=== PATIENT | female | born 1990 | race Caucasian/White ===

== ENCOUNTER 2016-10-12 00:46 | Observation (INO) | payer MEDICAID ==
[~2016-10-12] VITALS: Ht 162.6 cm; Wt 68.0 kg
[2016-10-12] MEDS ORDERED: FOLI-43 PO (01:47)
[2016-10-12] MEDS ORDERED: OCD PO (01:47)
[2016-10-12] MEDS ORDERED: IRON-1 PO (01:47)
[2016-10-12] MEDS ORDERED: PREN-88 PO (01:47)
== END 2016-10-12 02:07 | disposition home or self-care (01) ==
LOC: L&D 00:46
PROVIDERS: ADMIT Obstetrics & Gynecology; ATTEND Obstetrics & Gynecology
DX: O42.92 Full-term premature rupture of membranes, unspecified as to length of time between rupture and onset of labor (principal); Z3A.40 40 weeks gestation of pregnancy
CPT/HCPCS: 99281; G0378

== ENCOUNTER 2016-10-12 09:02 | Inpatient (IN) | payer MEDICAID ==
[~2016-10-12] VITALS: Ht 162.6 cm; Wt 69.9 kg
[~2016-10-12 09:02] MED LIST: FOLI-43 PO; IRON-1 PO; OCD PO; PREN-88 PO
[2016-10-12] MEDS ORDERED: DEXT 5%/LR + PITOCIN 20UNITS/L 1,000 ML IV SCH ×2 (10:04→14:36)
[2016-10-12] MEDS ORDERED: METHYLERGONOVINE MALEATE 0.2 MG/ML IM PRN ×2 (10:15→14:45)
[2016-10-12] MEDS ORDERED: CARBOPROST TROMETHAMINE 250 MCG/ML AMPUL IM PRN (10:15)
[2016-10-12] MEDS ORDERED: BUTORPHANOL TARTRATE 2 MG/ML VIAL IV PRN (10:15)
[2016-10-12] MEDS ORDERED: LIDOCAINE HCL 1% 20ML VIAL (Pyxis) INJ INFIL SCH (10:15)
[2016-10-12] MEDS ORDERED: NALOXONE HCL 0.4 MG/ML 1ML VIAL IM PRN (10:15)
[2016-10-12] MEDS: LACTATED RINGERS 1,000 ML IV SCH ×2 (10:24→10:45)
[2016-10-12 10:26] LABS: PARTIAL THROMBOPLASTIN TIME 29.2 sec (24.0-34.0); PROTHROMBIN TIME 9.9 sec
[2016-10-12 10:37] LABS: BASOPHILS % 0.2 % (0.0-2.0); EOSINOPHILS % 0.7 % (0.0-5.0); HEMATOCRIT. 38.6 % (36.0-48.0); HEMOGLOBIN. 13.3 g/dL (12.0-16.0); MEAN CORPUSCULAR HEMOGLOBIN 31.7 pg (28.0-32.0); MEAN CORPUSCULAR HGB CONC 34.4 g/dL (31.0-37.0); MEAN CORPUSCULAR VOLUME 92.2 fL (81.0-99.0); NEUTROPHILS % 76.1 % (40.0-76.0); PLATELET 129 x1000/uL (130-400); RED BLOOD CELL COUNT 4.18 mill/uL (4.2-5.4); RED CELL DISTRIBUTION WIDTH 13.8 % (11.6-14.6); WHITE BLOOD COUNT 9.4 x1000/uL (4.5-11.0)
[2016-10-12] MEDS ORDERED: FENTANYL CITRATE/PF 50MCG/ML 5ML VIAL ONE (10:37)
[2016-10-12] MEDS ORDERED: BUPIVACAINE HCL/NS/PF EPIDURAL 100 ML EP ONE (10:39)
[2016-10-12] MEDS ORDERED: BUPIVACAINE HCL/PF 0.25% (2.5MG/ML) 10ML ONE (10:39)
[2016-10-12] MEDS ORDERED: ONDANSETRON HCL 4MG/2ML VIAL IV PRN (11:15)
[2016-10-12] MEDS ORDERED: BUPIVACAINE HCL/NS/PF EPIDURAL 100 ML EP SCH (11:15)
[2016-10-12] MEDS ORDERED: DIPHENHYDRAMINE 50MG/ML VIAL IV PRN (11:15)
[2016-10-12] MEDS: DEXT 5%/LR + PITOCIN 20UNITS/L 1,000 ML IV SCH ×2 (11:55→15:54)
[2016-10-12 12:45] LABS: CLARITY URINE CLEAR (CLEAR); COLOR URINE YELLOW (YELLOW); GLUCOSE URINE NEGATIVE (NEGATIVE); KETONES URINE NEGATIVE (NEGATIVE); LEUKOCYTE ESTERASE URINE NEGATIVE (NEGATIVE); NITRITE URINE NEGATIVE (NEGATIVE); OCCULT BLOOD URINE 2+ (NEGATIVE); PROTEIN URINE NEGATIVE (NEGATIVE); SPECIFIC GRAVITY URINE 1.018 (1.005-1.030); UROBILINOGEN URINE 0.2 E.U./dL (0.2-1.0)
[2016-10-12 13:13] LABS: AMORPHOUS SEDIMENT URINE 1+ /lpf; BACTERIA URINE 1+; SQUAMOUS EPITHELIAL CELL URINE 2+ /lpf (RARE/1+)
[2016-10-12 13:14] LABS: MUCUS URINE 1+ /lpf (< = 2+); WBC URINE 0-2 /hpf (0-2)
[2016-10-12 13:56] LABS: RUBELLA IGG 118.8 IU/mL (4.99-10)
[2016-10-12 13:57] LABS: HEPATITIS B SURFACE ANTIGEN NEGATIVE
[2016-10-12] MEDS ORDERED: BISACODYL 10MG SUPP PR PRN (14:45)
[2016-10-12] MEDS ORDERED: ACETAMINOPHEN WITH CODEINE 300/30MG TABLET PO PRN (14:45)
[2016-10-12] MEDS ORDERED: DIPHENHYDRAMINE 25MG CAPSULE PO PRN (14:45)
[2016-10-12] MEDS ORDERED: BENZOCAINE/LANOLIN/ALOE VERA SPRAY TOP PRN (14:52)
[2016-10-12] MEDS ORDERED: GLYCERIN/WITCH HAZEL LEAF MEDICATED PAD TOP PRN (15:00)
[2016-10-12] MEDS ORDERED: RHO(D) IMMUNE GLOBULIN 300 MCG/SYR IM PRN (15:00)
[2016-10-12] MEDS ORDERED: LACTATED RINGERS 1,000 ML IV SCH (15:00)
[2016-10-12 16:45] VITALS: BP 95/52
[2016-10-12 17:20] VITALS: BP 108/65
[2016-10-12] MEDS: SIMETHICONE 80MG TABLET CHEW PO SCH (17:40)
[2016-10-12 17:50] VITALS: BP 108/65
[2016-10-12 19:46] LABS: *AMPHETAMINES SCREEN URINE NEGATIVE (NEGATIVE); *BARBITURATES SCREEN URINE NEGATIVE (NEGATIVE); *BENZODIAZEPINES SCREEN URINE NEGATIVE (NEGATIVE); *COCAINE SCREEN URINE NEGATIVE (NEGATIVE); CANNABINOID URINE SCREEN NEGATIVE (NEGATIVE); ECSTASY MDMA SCREEN URINE NEGATIVE (NEGATIVE); METHADONE URINE SCREEN NEGATIVE (NEGATIVE); OPIATES URINE SCREEN NEGATIVE (NEGATIVE); PHENCYCLIDINE URINE SCREEN NEGATIVE (NEGATIVE)
[2016-10-12] MEDS ORDERED: IBUPROFEN 400MG TABLET PO PRN (20:45)
[2016-10-12] MEDS: IBUPROFEN 800MG TABLET PO PRN (20:48)
[2016-10-12] MEDS: DOCUSATE SODIUM 100MG CAPSULE PO SCH (20:48)
[2016-10-12 21:30] VITALS: BP 107/63
[2016-10-13 06:40] LABS: BASOPHILS % 0.2 % (0.0-2.0); EOSINOPHILS % 1.5 % (0.0-5.0); HEMATOCRIT. 38.9 % (36.0-48.0); LYMPHOCYTES % 17.1 % (20.0-50.0); MEAN CORPUSCULAR HEMOGLOBIN 31.5 pg (28.0-32.0); MEAN CORPUSCULAR HGB CONC 33.5 g/dL (31.0-37.0); MEAN CORPUSCULAR VOLUME 94.2 fL (81.0-99.0); MEAN PLATELET VOLUME 9.8 fl (7.4-10.4); MONOCYTES % 9.3 % (2.0-8.0); NEUTROPHILS % 71.9 % (40.0-76.0); PLATELET 123 x1000/uL (130-400); RED BLOOD CELL COUNT 4.13 mill/uL (4.2-5.4); RED CELL DISTRIBUTION WIDTH 13.6 % (11.6-14.6)
[2016-10-13 08:00] VITALS: BP 100/63
[2016-10-13] MEDS: SIMETHICONE 80MG TABLET CHEW PO SCH ×2 (08:56→20:49)
[2016-10-13] MEDS: IBUPROFEN 800MG TABLET PO PRN ×2 (08:56→22:30)
[2016-10-13] MEDS ORDERED: PRENATAL VIT/FE FUMARATE/FA TABLET PO SCH (09:00)
[2016-10-13] MEDS ORDERED: FERROUS SULFATE 325MG TABLET PO SCH (12:10)
[2016-10-13 16:00] VITALS: BP 92/49
[2016-10-13 20:00] VITALS: BP 118/76
[2016-10-13] MEDS: DOCUSATE SODIUM 100MG CAPSULE PO SCH (20:46)
[2016-10-14 04:30] VITALS: BP 109/72
[2016-10-14 08:30] VITALS: BP 106/70
[2016-10-14] MEDS: IBUPROFEN 800MG TABLET PO PRN (13:17)
== END 2016-10-14 14:45 | disposition home or self-care (01) | DRG 560 ==
LOC: L&D 09:02 → OBSVTOIN 09:02 → INTOOBSV 09:02 → 7EST PP/OB 20:03
PROVIDERS: ADMIT Obstetrics & Gynecology; ATTEND Obstetrics & Gynecology
PROC: 3E0S3CZ (ICD-10-PCS; 2016-10-12)
PROC: 00HU33Z Insertion of Infusion Device into Spinal Canal, Percutaneous Approach (ICD-10-PCS; 2016-10-12)
PROC: 10E0XZZ Delivery of Products of Conception, External Approach (ICD-10-PCS; principal; 2016-10-12 14:23)
DX: O48.0 Post-term pregnancy (principal); O69.81X0 Labor and delivery complicated by cord around neck, without compression, not applicable or unspecified; Z37.0 Single live birth; Z3A.41 41 weeks gestation of pregnancy
CPT/HCPCS: 36415; 80305; 81001; 85025; 85610; 85730; 86592; 86703; 86762; 86850; 86900; 87340; J2590; J3010; J3490; J7120; A4315